=== PATIENT | female | born 1960 | race Two or more races ===

== ENCOUNTER → 2021-09-12 | Outpatient (CLI) | payer OTHER ==
[2021-09-12 10:56] LABS: Basophils # (auto) 0.2 10 ^3/uL (0-0.2); Basophils % (auto) 3.3 % (0.0-2.0); Eosinophils # (auto) 0.3 10 ^3/uL (0-0.8); Hematocrit 38.9 % (36.0-46.0); Hemoglobin 12.9 g/dL (12.2-16.2); Lymphocytes # (auto) 1.6 10 ^3/uL (0.4-5.4); Lymphocytes % (auto) 32.3 % (10.0-50.0); Mean Corpuscular Hemoglobin 28.1 pg (28.0-32.0); Mean Corpuscular Hgb Conc. 33.1 g/dL (32.0-36.0); Mean Corpuscular Volume 85.1 fL (80.0-100.0); Monocytes # (auto) 0.6 10 ^3/uL (0-1.3); Monocytes % (auto) 11.4 % (0.0-12.0); Neutrophils # (auto) 2.4 10 ^3/uL (1.6-8.6); Red Blood Cells 4.58 10^6/uL (4.0-5.20); White Blood Cell 5.1 10^3/uL (4.4-10.8)
[2021-09-12 12:10] LABS: Albumin 3.6 g/dL (3.4-5.0); Calcium 9.3 mg/dL (8.5-10.1); Potassium 4.3 mmol/L (3.5-5.1)
[2021-09-12 12:13] LABS: BUN/Creatinine Ratio 13.6
[2021-09-12 12:16] LABS: Bilirubin, Total 0.4 mg/dL (0.2-1.0); Total Protein 7.8 g/dL (6.4-8.2)
== END | disposition home or self-care (01) ==
LOC: LAB 10:35
PROVIDERS: ATTEND Internal Medicine Nephrology
DX: R22.42 Localized swelling, mass and lump, left lower limb (principal); I10 Essential (primary) hypertension
CPT/HCPCS: 36415; 80053; 83036; 85025